=== PATIENT | female | born 1990 | race Caucasian/White ===

== ENCOUNTER 2020-02-06 13:53 | Emergency (ER) | payer SELFPAY ==
[2020-02-06 13:58] VITALS: BMI 23.3
[2020-02-06 14:02] VITALS: BP 130/72; PULSE 68; RESP 20; TEMP 36.9; O2SAT 100
[2020-02-06 14:24] LABS: HCG Qualitative Urine. Negative (Negative)
--- NOTE | 2020-02-06 14:25 | W.ED.FEMALGU ---
HPI - Female Genitourinary General: Chief complaint: Urogenital-Female Stated complaint: possible kidney problems Time Seen by Provider: 02/06/20 13:57 History of Present Illness: HPI Narrative: Patient is a 29-year-old female presenting with right flank pain. She reports that the pain started yesterday evening. She took some Tylenol but it did not really help. Today she has continued pain and also has developed a fever. She has had nausea but no vomiting. No dysuria or hematuria. No diarrhea or constipation. Her last menstrual period ended on Monday and was normal and on time. She has had her gallbladder removed a few years ago. No other surgeries. She has never had a kidney stone that she knows of. She has been able to eat and drink today without vomiting or exacerbation of her pain. MD elicited complaint: flank pain Onset (ago): hour(s) (18) Location of symptoms: RLQ, low back and flank Severity: severe Quality of pain: sharp and aching Consistency: constant Vaginal bleeding: none Exacerbating factors: movement Associated symptoms: Reports abdominal pain, fevers/chills, nausea and other (Malaise); Deny headache(s) Date of Last Menstrual Period: 01/27/20 Review of Systems General: Reports: 10 or more systems reviewed and unremarkable except in HPI and below Const: Reports: fever(s), chills, fatigue and malaise Card: Denies: chest pain or swelling of feet/ankles Resp: Denies: dyspnea, productive cough or non-productive cough GI: Reports: abdominal pain and nausea Musc: Denies: neck pain Skin/Breast: Denies: rash Neuro: Denies: headache(s), numbness in extremities or weakness in extremities Leodan/Lymph: Denies: easy bruising or easy bleeding PFSH ED PFSH: Surgical History History of carpal tunnel surgery of left wrist History of carpal tunnel surgery of right wrist History of cholecystectomy Social History Smoking and tobacco status: current every day smoker cigarettes Packs smoked per day: 1 Years cigarettes smoked: 17 Quit status (tobacco): has tried quititng Number of times tried to quit tobacco: 3 Second hand smoke exposure: Yes Smoking risk assessment/counseling performed?: Yes Tobacco counseling given: counseling >3 minutes Female Reproductive History: Date of last menstrual period: 01/27/20 Physical Exam Const: COMMON NORMALS: patient oriented x3, no limitations and alert GENERAL APPEARANCE: cooperative, well developed and in distress HENMT: HEAD & SCALP: normal to inspection FACE & SINUS: normal facial exam Eye: GENERAL EYE: appearance normal, both eyes and all related structures Neck/C-Spine: COMMON NORMALS: supple, no meningeal signs and no JVD Chest: COMMONS NORMALS: normal inspection of the chest Resp: COMMON NORMALS: normal respiratory effort, No use of accessory muscles and clear to auscultation bilaterally AUSCULTATION: clear to auscultation bilaterally Cardio: COMMON NORMALS: no JVD, regular rate, regular rhythm and No murmurs present (Cardio) RATE: regular rate RHYTHM: regular rhythm GI: COMMON NORMALS: Normal to inspection, nondistended, normoactive bowel sounds present and Soft to palpation INSPECTION: Yes normal to inspection AUSCULTATION: Yes normoactive bowel sounds PALPATION: Yes Soft to palpation and Yes Tenderness to palpation present (GI) (right lower quadrant) : BLADDER/KIDNEY EXAM: Yes CVA tenderness Back/Pelvis: COMMON NORMALS: thoracic and lumbar spine normal to inspection GENERAL BACK: Yes CVA tenderness CVA tenderness: right Extremity: COMMON NORMALS: normal to inspection Neuro: COMMON NORMALS: patient oriented x3, moves all extremities, no focal motor deficits and no sensory deficits noted SENSORIUM/ORIENTATION: Yes alert MENINGEAL SIGNS: Yes no meningeal signs Psych: COMMON NORMALS: mental status grossly normal, cooperative and normal affect Skin: COMMON NORMALS: no rashes or lesions noted and turgor normal GENERAL SKIN EXAM: no rashes or lesions noted and turgor normal Course ED course: Patient improved while in the ED. She was able to tolerate p.o. She was given fluids and pain medicine which improved her symptoms. She has follow-up available as an outpatient. We discussed return precautions. Vital Signs: Vital signs: Vital Signs Temperature 97.6 F 02/06/20 18:09 Pulse Rate 72 02/06/20 18:09 Respiratory Rate 18 02/06/20 18:09 Blood Pressure 106/51 02/06/20 18:09 Pulse Oximetry 98 06/04/20 18:09 MDM - Female MDM Narrative: Medical decision making narrative: Flank pain, fever, clear UTI on labs. CT was done to rule out kidney stone as the patient had pain exclusively on the right side. She was given IV fluids, IV Rocephin, pain medications. Plan for outpatient management with antibiotics and Zofran. Lab Data: Labs: Lab Results 02/06/20 02/06/20 02/06/20 Range/Units 14:13 14:13 14:37 WBC 10.7 H (4.0-10.0) 10^3/ uL RBC 4.04 L (4.1-5.3) 10^6/u L Hgb 11.4 L (11.5-15.3) g/dL Hct 35.5 L (37.0-47.0) % MCV 87.9 (81-99) fL MCH 28.2 (28.0-34.0) pg MCHC 32.1 (30.0-36.0) g/dL RDW 13.7 (12.1-15.1) % Plt Count 261 (130-400) 10^3/c mm MPV 10.3 (7.4-10.4) fL Neut % (Auto) 75.0 % Lymph % (Auto) 12.0 % [place] % (Auto) 11.7 % Eos % (Auto) 0.6 % Baso % (Auto) 0.3 % Neut # (Auto) 8.0 H (1.8-7.7) 10^3/u L Lymph # (Auto) 1.3 (0.8-4.8) 10^3/u L [place] # (Auto) 1.3 H (0.2-0.9) 10^3/u L Eos # (Auto) 0.1 (0.0-0.8) 10^3/u L Baso # (Auto) 0.0 (0.0-0.1) 10^3/u L Nucleated RBC % (a uto) 0 % Nucleated RBCs # 0.0 /100WBC Sodium (136-145) mmol/L Potassium (3.5-5.1) mmol/L Chloride (98-107) mmol/L Carbon Dioxide (22-29) mmol/L Anion Gap (5-19) BUN (6-20) mg/dL Creatinine (0.5-0.9) mg/dL GFR Calculation (90-130) mL/min Glucose (65-115) mg/dL Calculated Osmolal ity (285-295) mOsm/k g Calcium (8.5-10.5) mg/dL Total Bilirubin (0.15-1.2) mg/dL AST (0-32) U/L ALT (0-33) U/L Alkaline Phosphata se (35-105) IU/L Total Protein (6.6-8.7) g/dL Albumin (3.5-5.2) g/dL Globulin (1.3-4.6) g/dL HCG, Qual Negative (Negative) Urine Color Yellow (Yellow) Urine Appearance Sl cloudy A (CLEAR) Urine pH 5 (5-7) Ur Specific Gravit y 1.015 (1.005-1.030) Urine Protein 1+ H (Negative) Urine Glucose (UA) Norm (Normal) Urine Ketones Negative (Negative) Urine Blood 3+ H (Negative) Urine Nitrate Positive H (Negative) Urine Bilirubin Neg (NEGATIVE) Urine Urobilinogen Norm (Negative) mg/dL Ur Leukocyte Kajal ase 1+ H (Negative) Urine RBC 15-25 H (0-2) /hpf Urine WBC 80-100 H (0-5) /hpf Ur Squamous Epith Cells 10-15 H (0-5) Urine Bacteria 1+ H (NONE) Urine Mucus 2+ /12/22 Range/Units 14:37 WBC (4.0-10.0) 10^3/ uL RBC (4.1-5.3) 10^6/u L Hgb (11.5-15.3) g/dL Hct (37.0-47.0) % MCV (81-99) fL MCH (28.0-34.0) pg MCHC (30.0-36.0) g/dL RDW (12.1-15.1) % Plt Count (130-400) 10^3/c mm MPV (7.4-10.4) fL Neut % (Auto) % Lymph % (Auto) % [place] % (Auto) % Eos % (Auto) % Baso % (Auto) % Neut # (Auto) (1.8-7.7) 10^3/u L Lymph # (Auto) (0.8-4.8) 10^3/u L [place] # (Auto) (0.2-0.9) 10^3/u L Eos # (Auto) (0.0-0.8) 10^3/u L Baso # (Auto) (0.0-0.1) 10^3/u L Nucleated RBC % (a uto) % Nucleated RBCs # /100WBC Sodium 133 L (136-145) mmol/L Potassium 3.6 (3.5-5.1) mmol/L Chloride 102 (98-107) mmol/L Carbon Dioxide 21 L (22-29) mmol/L Anion Gap 13.6 (5-19) BUN 15 (6-20) mg/dL Creatinine 0.7 (0.5-0.9) mg/dL GFR Calculation 100.4 (90-130) mL/min Glucose 101 (65-115) mg/dL Calculated Osmolal ity 272 L (285-295) mOsm/k g Calcium 8.9 (8.5-10.5) mg/dL Total Bilirubin 0.4 (0.15-1.2) mg/dL AST 12 (0-32) U/L ALT 12 (0-33) U/L Alkaline Phosphata se 74 (35-105) IU/L Total Protein 6.6 (6.6-8.7) g/dL Albumin 4.0 (3.5-5.2) g/dL Globulin 2.6 (1.3-4.6) g/dL HCG, Qual (Negative) Urine Color (Yellow) Urine Appearance (CLEAR) Urine pH (5-7) Ur Specific Gravit y (1.005-1.030) Urine Protein (Negative) Urine Glucose (UA) (Normal) Urine Ketones (Negative) Urine Blood (Negative) Urine Nitrate (Negative) Urine Bilirubin (NEGATIVE) Urine Urobilinogen (Negative) mg/dL Ur Leukocyte Kajal ase (Negative) Urine RBC (0-2) /hpf Urine WBC (0-5) /hpf Ur Squamous Epith Cells (0-5) Urine Bacteria (NONE) Urine Mucus Discharge Plan Discharge Patient Disposition: Home, Self-Care Clinical Impression: Urinary tract infection Qualifiers: Urinary tract infection type: acute pyelonephritis Qualified Code(s): N10 - Acute pyelonephritis Condition: Stable Prescriptions: New cefdinir 300 mg capsule 300 mg PO BID 10 Days Qty: 20 RF: 0 No Action multivitamin Tablet 1 tab PO QAM RF: 0 Aspir-81 81 mg Tablet,Delayed Release (Dr/Ec) 81 mg PO PRN PRN (Reason: Headache) RF: 0 ibuprofen 200 mg Tablet 200 - 800 mg PO PRN RF: 0 Discharge Orders: Discharge Order (Routine); Ordered 02/06/20 Ordered By: Evelyn Jean Discharge Diet: Usual diet Discharge Activity: Resume usual activity Patient Instructions: Acute Pyelonephritis (ED) Activity Restrictions/Additional Instructions: Drink plenty of fluids. Return to the emergency department for high fevers, severe pain, vomiting, any other new or worse symptoms. Take the antibiotics as prescribed. Use the Zofran as needed if nausea. Discharge Date/Time: 02/06/20 18:10 Coding Level of Care Code ED [employer] for Felecia Fwayaz Exam Comprehensive
[2020-02-06] MEDS: ketorolac 30 mg/mL INJ 15 MG IVP (14:55)
[2020-02-06] MEDS: sodium chloride 0.9% 1,000 ML 999 ML IV (14:55)
[2020-02-06 14:57] LABS: Basophils % 0.3 %; Eosinophils # 0.1 10^3/uL (0.0-0.8); Eosinophils % 0.6 %; Hematocrit 35.5 % (37.0-47.0); Hemoglobin 11.4 g/dL (11.5-15.3); Lymphocytes # 1.3 10^3/uL (0.8-4.8); Mean Corpuscular HGB Conc 32.1 g/dL (30.0-36.0); Mean Corpuscular Hemoglobin 28.2 pg (28.0-34.0); Mean Corpuscular Volume 87.9 fL (81-99); Mean Platelet Volume 10.3 fL (7.4-10.4); Monocytes # 1.3 10^3/uL (0.2-0.9); Monocytes % 11.7 %; Nucleated Red Blood Cells % 0 %; Platelet Count 261 10^3/cmm (130-400); Red Blood Count 4.04 10^6/uL (4.1-5.3); Red Cell Distribution Width 13.7 % (12.1-15.1); White Blood Count 10.7 10^3/uL (4.0-10.0)
[2020-02-06 15:01] LABS: Specific Gravity, Urine 1.015 (1.005-1.030); Urine Color Yellow (Yellow); pH Urine 5 (5-7)
[2020-02-06 15:02] LABS: Add Urine Microscopic? YES; Bilirubin Urine Neg (NEGATIVE); Blood Urine 3+ (Negative); Glucose Urine UA Norm (Normal); Ketones Urine Negative (Negative); Leukocyte Esterase Urine 1+ (Negative); Nitrate Urine Positive (Negative); Protein Urine 1+ (Negative); Urobilinogen Urine Norm (Negative)
[2020-02-06 15:03] LABS: Alanine Aminotransferase 12 U/L (0-33); Alkaline Phosphatase 74 IU/L (35-105); Anion Gap 13.6 (5-19); Aspartate Amino Transferase 12 U/L (0-32); Blood Urea Nitrogen 15 mg/dL (6-20); Calcium 8.9 mg/dL (8.5-10.5); Carbon Dioxide 21 mmol/L (22-29); Chloride 102 mmol/L (98-107); Globulin 2.6 g/dL (1.3-4.6); Glomerular Filtration Rate 100.4 mL/min (90-130); Glucose 101 mg/dL (65-115); Osmolality Calculated 272 mOsm/kg (285-295); Potassium 3.6 mmol/L (3.5-5.1); Sodium 133 mmol/L (136-145); Total Bilirubin 0.4 mg/dL (0.15-1.2); Total Protein 6.6 g/dL (6.6-8.7)
[2020-02-06 15:04] LABS: RBC Urine 15-25 /hpf (0-2); WBC Urine 80-100 /hpf (0-5)
[2020-02-06 15:05] LABS: Add Urine Culture? No; Bacteria Urine 1+; Mucus Urine 2+
--- NOTE | 2020-02-06 15:10 | CT_ITS ---
WS: [id number] CT kidney stone [id number] REASON FOR EXAM: right flank pain, UTI IV CONTRAST ADMINISTERED: None. TOTAL EXAM DLP: 657.[address] scans at [facility] use at least one of these dose optimization techniques: automat ed exposure control; mA and/or kV adjustment per patient size (includes targeted exams where dose is matched to clinical indication); or iterative reconstruction. FINDINGS: The lower chest was normal. The liver showed no filling defects or deformities. Gallbladder is been surgically removed. The pancreas head, body, tail are normal. The spleen was normal. The stomach showed no filling defects. The right and left adrenal glands were normal no abnormal's seen no adenomas. Both kidneys show normal appearance no hydronephrosis no stones both ureters were of normal size and configuration. The large bowel showed considerable fecal stasis. Small bowel patterns were normal. Uterus is normal and there is no masses in the ovaries seen. No free fluid in the cul-de-sac. The urinary bladder was normal no stones are seen in the bladder. The rectum was normal. CT/CT kidney stone [id number] IMPRESSION: Fecal stasis dye identified. No definite cysts of stones in the kidneys, ureter, or bladder. The adnexa and uterus were normal. No free fluid or air in the abdomen.
[2020-02-06 15:27] VITALS: RESP 18; O2SAT 97
[2020-02-06] MEDS: morphine 4 mg/mL SDV 1 mL IVP (15:27)
[2020-02-06] MEDS: cefTRIAXone 1,000 MG in sodium chloride 0.9% (plus) 50 ML 100 MG IV (15:27)
[2020-02-06 18:09] VITALS: BP 106/51; PULSE 72; RESP 18; TEMP 36.4; O2SAT 98
== END 2020-02-06 18:10 | disposition home or self-care (01) ==
PROVIDERS: Emergency Provider Emergency Medicine
DX: N10 Acute pyelonephritis (principal); Z79.82 Long term (current) use of aspirin; F17.210 Nicotine dependence, cigarettes, uncomplicated
CPT/HCPCS: 12345; 36415; 74176; 80053; 81001; 81025; 85025; 96360; 96361; 96365; 96375; 99283; J0696; J1885; J2270; J7030